=== PATIENT | male | born 2000 | race Caucasian/White ===

== ENCOUNTER 2018-04-25 15:13 | Emergency (ER) | payer MEDICAID, OTHER ==
[~2018-04-25] VITALS: Ht 182.9 cm; Wt 90.9 kg
[2018-04-25 16:03] LABS: BASOPHILS # (AUTO) 0.07 x10^3/uL (0-0.3); BASOPHILS % (AUTO) 1 % (0-1); EOSINOPHILS # (AUTO) 0.15 x10^3/uL (0-0.8); EOSINOPHILS % (AUTO) 1 % (1-7); LYMPHOCYTES # (AUTO) 2.25 x10^3/uL (1-6.1); LYMPHOCYTES % (AUTO) 21 % (22-44); MD NO; MEAN CORPUSCULAR HEMOGLOBIN 29.9 pg (27.5-34.5); MEAN CORPUSCULAR HGB CONC 34.1 g/dL (33.2-36.2); MEAN CORPUSCULAR VOLUME 87.8 fL (81-97); MEAN PLATELET VOLUME 10.2 fL (7.4-10.4); MONOCYTES # (AUTO) 0.74 x10^3/uL (0-1.4); MONOCYTES % (AUTO) 7 % (2-9); NEUTROPHILS % (AUTO) 70 % (42-75); PLATELET COUNT 252 x10^3/uL (130-400); RED BLOOD COUNT 5.41 x10^6/uL (4.38-5.82); RED CELL DISTRIBUTION WIDTH 13.2 % (9.4-14.8)
[2018-04-25 16:15] LABS: ALBUMIN 4.4 g/dL (3.4-5.0); ANION GAP 9 mmol/L (5-15); CHLORIDE 104 mmol/L (98-107)
[2018-04-25 16:16] LABS: CREATININE 0.72 mg/dL (0.7-1.3)
--- NOTE | 2018-04-25 17:36 | NUR ---
TO ROOM FROM LOBBY
--- NOTE | 2018-04-25 17:42 | NUR ---
CONTACT WITH PT, 17 YR OLD MALE HERE WITH C/O "I HAVE BEEN POOPING SINCE 5 THIS AM, SINCE THE AFTERNOON, I HAVE NOTICED THAT THERE IS SOME BLOOD MIXED IN WITH IT" WAS SOLID THIS AM, 930-10 BECAME RUNNY. LAST BM WAS 1230. DENIES BELLY PAIN OR PROBLEMS WITH URINATION.
--- NOTE | 2018-04-25 18:05 | NUR ---
PT TO BR, ABLE TO PRODUCE SMALL FORMED STOOL. (NO DIARRHEA) WITH TRACE VISABLE BLOOD. DR POWERS NOTIFIED.
--- NOTE | 2018-04-25 18:55 | NUR ---
Report given from JOYCE Saba
--- NOTE | 2018-04-25 18:58 | NUR ---
BEDSIDE REPORT TO REGLA COOK
[2018-04-25 19:15] VITALS: BP 117/67
== END 2018-04-25 19:17 | disposition home or self-care (01) ==
LOC: EDSEX 15:13 → ED 18:26
DX: K64.8 Other hemorrhoids (principal); R19.7 Diarrhea, unspecified; R11.2 Nausea with vomiting, unspecified
CPT/HCPCS: 36415; 80048; 82040; 85025; 99283; 99284